=== PATIENT | male | born 1990 | race Caucasian/White ===

== ENCOUNTER 2016-07-19 20:28 | Emergency (ER) | payer OTHER ==
[2016-07-19] MEDS ORDERED: OXYCODONE-ACETAMINOPHEN 5-325 MG TABLET PO ONE (20:51)
[2016-07-19] MEDS ORDERED: ONDANSETRON 4 MG TAB.RAPDIS PO ONE (20:51)
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
[2016-07-19] MEDS ORDERED: MORPHINE SULFATE 10 MG/ML INJ IM ONE (23:50)
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
[2016-07-20 01:50] VITALS: BP 104/54
== END 2016-07-20 01:51 | disposition home or self-care (01) ==
LOC: ER 20:28
PROC: 2W39X1Z Immobilization of Left Upper Extremity using Splint (ICD-10-PCS; principal; 2016-07-19)
DX: S62.002A Unspecified fracture of navicular [scaphoid] bone of left wrist, initial encounter for closed fracture (principal); S52.125A Nondisplaced fracture of head of left radius, initial encounter for closed fracture; S70.11XA Contusion of right thigh, initial encounter; M25.532 Pain in left wrist; M79.602 Pain in left arm; V28.4XXA Motorcycle driver injured in noncollision transport accident in traffic accident, initial encounter
CPT/HCPCS: 99283; 96372; 73080; 73502; 73110; 29105; S0119; J2270